=== PATIENT | female | born 1965 ===

== ENCOUNTER 2021-10-20 12:15 | Inpatient (IN) | payer OTHER ==
[~2021-10-20] VITALS: Ht 162.6 cm; Wt 93.4 kg
[2021-10-26] MEDS ORDERED: ATORVASTATIN CA10 MG (13:03)
[2021-11-08] MEDS ORDERED: INTESTINEX680 M1 PO (08:32)
[2021-11-08] MEDS ORDERED: LEVSIN/SL0.125 MG SL (08:33)
[2021-11-08] MEDS ORDERED: FLUCONAZOLE200 MG PO (08:35)
== END 2021-11-08 12:08 | disposition home or self-care (01) | DRG 330 ==
LOC: SURH 10-26 07:00 → O/R 10-26 07:56 → SURH 10-26 12:15
PROVIDERS: ADMIT Surgery; ATTEND Surgery
PROC: 0DBP4ZZ Excision of Rectum, Percutaneous Endoscopic Approach (ICD-10-PCS; 2021-10-26)
PROC: 07BB4ZZ Excision of Mesenteric Lymphatic, Percutaneous Endoscopic Approach (ICD-10-PCS; 2021-10-26)
PROC: 0DJD8ZZ Inspection of Lower Intestinal Tract, Via Natural or Artificial Opening Endoscopic (ICD-10-PCS; 2021-10-26)
PROC: 0DTN4ZZ Resection of Sigmoid Colon, Percutaneous Endoscopic Approach (ICD-10-PCS; principal; 2021-10-26 07:00)
PROC: 4A12X4Z Monitoring of Cardiac Electrical Activity, External Approach (ICD-10-PCS; 2021-10-27)
PROC: BW21YZZ Computerized Tomography (CT Scan) of Abdomen and Pelvis using Other Contrast (ICD-10-PCS; 2021-10-31)
PROC: 0DNW0ZZ Release Peritoneum, Open Approach (ICD-10-PCS; 2021-11-02)
PROC: 0W9J00Z Drainage of Pelvic Cavity with Drainage Device, Open Approach (ICD-10-PCS; 2021-11-02)
DX: C18.7 Malignant neoplasm of sigmoid colon (principal); K62.5 Hemorrhage of anus and rectum; K91.89 Other postprocedural complications and disorders of digestive system; K56.7 Ileus, unspecified; K91.870 Postprocedural hematoma of a digestive system organ or structure following a digestive system procedure; R00.0 Tachycardia, unspecified; N73.6 Female pelvic peritoneal adhesions (postinfective); R59.0 Localized enlarged lymph nodes; Z20.822 Contact with and (suspected) exposure to COVID-19; F43.20 Adjustment disorder, unspecified